=== PATIENT | male | born 1960 | race African-American/Black ===

== ENCOUNTER 2019-04-15 15:03 | Emergency (ER) | payer SELFPAY ==
[2019-04-15 15:21] LABS: Bicarbonate (HCO3v) 11.7 mmol/L (22.0-28.0); CO2 Tension (PvCO2) 36.8 mmHg (40.0-50.0); Chloride 106 mmol/L (98-107); Glucose 70 mg/dL (70-105); Hemoglobin - Calc 15.2 g/dL (14.0-18.0); Lactate 12.66 mmol/L (0.50-2.20); Potassium 6.9 mmol/L (3.5-5.1); Sodium 148 mmol/L (138-145); T. Carbon Dioxide 12.9 mmol/L (22.0-28.0); vO2 Saturation-calc 87.9 % (60.0-85.0)
[2019-04-15 15:47] LABS: Mean Corpuscular Hemoglobin 31.8 pg (27.0-31.0); Mean Corpuscular Volume 99.4 fL (78.0-98.0); Mean Platelet Volume 7.4 fL (7.4-10.4); Platelet Count 157 thou/uL (130-400); RBC Distribution Width 11.7 % (11.5-14.5); Red Blood Cell (RBC) Count 2.52 mill/uL (4.70-6.10); White Blood Cell (WBC) Count 5.9 thou/uL (4.8-10.8)
[2019-04-15 16:08] LABS: Band 3 % (5-11); Burr Cells SLIGHT = 2-5 cells (100X) (0-1/hpf); Eosinophils 4 % (0-10); Lymphocytes 65 % (21-51); MDiff Complete? YES; Metamyelocyte 1 % (0-0); Monocytes 8 % (0-10); Myelocyte 1 % (0-0); Neutrophil 18 % (42-75); Nucleated RBC 1 % (0); Ovalocytes SLIGHT = 2-5 cells (100X) (0-1/hpf); Platelet Morphology Comment Appears Adequate; Polychromasia SLIGHT = 2-3 cells (100X) (0-2/hpf)
[2019-04-15 16:12] LABS: ALT (SGPT) 58 U/L (8-55); AST (SGOT) 126 U/L (5-34); Albumin 1.7 g/dL (3.5-5.0); Alkaline Phosphatase 41 U/L (40-110); Anion Gap 19 mmol/L (10-20); BUN (Urea Nitrogen) 18 mg/dL (8.4-25.7); Bilirubin, Total 0.2 mg/dL (0.2-1.2); Calc. Creatinine Clearance 0 mL/min (70-130); Carbon Dioxide 12 mmol/L (22-29); Chloride 124 mmol/L (98-107); Estimated GFR-MDRD Greater than 90; Globulin 1.8 g/dL (2.4-3.5); Protein, Total 3.5 g/dL (6.0-8.3); Sodium 151 mmol/L (136-145)
[2019-04-15 16:17] LABS: Calcium 5.8 mg/dL (7.8-10.44); Glucose 52 mg/dL (70-105)
[2019-04-15 18:39] LABS: Amphetamine Not Detected (NotDetected); Barbiturates Screen Not Detected (NotDetected); Benzodiazepine Screen Not Detected (NotDetected); Cocaine Metabolite Screen Detected (NotDetected); Medtox Control Line Valid? VALID (VALID); Medtox Reader # READER 1; Methadone Not Detected (NotDetected); Methamphetamine Not Detected (NotDetected); Opiate Screen Not Detected (NotDetected); Oxycodone Screen Not Detected (NotDetected); Phencyclidine (PCP) Detected (NotDetected); THC/Cannabinoid Screen Not Detected (NotDetected); Tricyclic Screen Not Detected (NotDetected)
== END 2019-04-15 15:21 | disposition expired ==
LOC: ERS 15:03
DX: I46.9 Cardiac arrest, cause unspecified (principal); E87.6 Hypokalemia
CPT/HCPCS: 51702; 80053; 80306; 82330; 82803; 83605; 85025; 92950; 96374; 96375